=== PATIENT | male | born 1965 | race Caucasian/White ===

== ENCOUNTER 2023-09-15 13:40 | Observation (INO) | payer BC, OTHER ==
[2023-09-15] MEDS ORDERED: ASPIRIN 325 MG TABLET PO ONE (14:19)
[2023-09-15] MEDS ORDERED: ASPIRIN 325 MG TABLET ONE (14:49)
[2023-09-15 15:46] LABS: BASO % 0.7 % (0-2.0); EOS % 2.1 % (0-4.5); HEMOGLOBIN 15.6 GM/dL (11.7-16.9); LYMPH % 24.1 % (8-40); MCH 31.3 pg (25.7-33.7); MCHC 34.7 g/dl (32.0-35.9); MEAN CELL VOLUME 90.3 fl (80-96); MEAN PLT VOLUME 9.4 fl (7.5-11.1); MONO % 7.3 % (3.8-10.2); NEUT % 65.8 % (42.8-82.8); PLATELET COUNT 221 10^3/uL (134-434); RBC 4.99 M/mm3 (4.00-5.60); RDW 13.6 % (11.9-15.9); WHITE BLOOD COUNT 9.3 K/mm3 (4.0-10.0)
[2023-09-15 15:56] LABS: INR 1.04 (0.83-1.09); PROTHROMBIN TIME (PATIENT) 12.1 SEC (9.7-13.0)
[2023-09-15 15:59] LABS: ACTIVATED PTT 34.1 SECONDS (25.2-36.5)
[2023-09-15 16:05] LABS: CHLORIDE 102 mmol/L (98-107); SODIUM 134 mmol/L (136-145)
[2023-09-15 16:07] LABS: ALBUMIN 3.6 g/dl (3.4-5.0); BLOOD UREA NITROGEN 11.8 mg/dL (7-18); CALCIUM 8.5 mg/dL (8.5-10.1); CO2 27 mmol/L (21-32); GLUCOSE,RANDOM 184 mg/dL (74-106)
[2023-09-15 16:09] LABS: CREATININE 0.8 mg/dL (0.55-1.3); SGOT/AST 44 U/L (15-37); SGPT/ALT 28 U/L (13-61)
[2023-09-15 16:12] LABS: BILIRUBIN,TOTAL 0.8 mg/dL (0.2-1); TOT PROT 7.1 g/dl (6.4-8.2)
[2023-09-15 16:13] LABS: ALK PHOS 65 U/L (45-117)
[2023-09-15 16:18] LABS: ANION GAP 5 mmol/L (4-13); POTASSIUM 6.4 mmol/L (3.5-5.1)
[2023-09-15] MEDS ORDERED: NITROGLYCERIN SUBLINGUAL 1/150 0.4 MG TAB SL ONE (17:16)
[2023-09-15] MEDS ORDERED: NITROGLYCERIN SUBLINGUAL 1/150 0.4 MG TAB SL PRN (17:20)
[2023-09-15] MEDS: LACTATED RINGERS SOLUTION 1,000 ML IV SCH (17:30)
[2023-09-15 17:41] LABS: ALBUMIN 3.7 g/dl (3.4-5.0); BLOOD UREA NITROGEN 11.5 mg/dL (7-18); CALCIUM 8.9 mg/dL (8.5-10.1)
[2023-09-15 17:45] LABS: CREATININE 0.8 mg/dL (0.55-1.3)
[2023-09-15 17:47] LABS: BILIRUBIN,TOTAL 0.6 mg/dL (0.2-1); TOT PROT 6.8 g/dl (6.4-8.2)
[2023-09-15] MEDS ORDERED: METOPROLOL TARTRATE 25 MG TABLET (FP) ONE (21:05)
[2023-09-15] MEDS ORDERED: ATORVASTATIN CA 80 MG TABLET (FP) ONE (21:06)
[2023-09-15] MEDS: ATORVASTATIN CA 80 MG TABLET (FP) PO SCH ×2 (21:06→21:28)
[2023-09-15] MEDS: METOPROLOL TARTRATE 25 MG TABLET (FP) PO SCH ×2 (21:07→21:27)
[2023-09-16 01:33] VITALS: RESP 20; BMI 28.8
[2023-09-16 07:42] LABS: BASO % 0.3 % (0-2.0); EOS % 2.5 % (0-4.5); HEMATOCRIT 45.6 % (35.4-49); MCH 31.6 pg (25.7-33.7); MCHC 35.1 g/dl (32.0-35.9); MEAN CELL VOLUME 90.1 fl (80-96); MEAN PLT VOLUME 9.1 fl (7.5-11.1); MONO % 6.5 % (3.8-10.2); NEUT % 66.7 % (42.8-82.8); PLATELET COUNT 199 10^3/uL (134-434); RBC 5.06 M/mm3 (4.00-5.60); RDW 13.5 % (11.9-15.9); WHITE BLOOD COUNT 8.2 K/mm3 (4.0-10.0)
[2023-09-16 08:01] LABS: POTASSIUM 4.4 mmol/L (3.5-5.1)
[2023-09-16 08:10] LABS: CALCIUM 8.4 mg/dL (8.5-10.1)
[2023-09-16 08:11] LABS: ALBUMIN 3.7 g/dl (3.4-5.0); BLOOD UREA NITROGEN 10.3 mg/dL (7-18); MAGNESIUM 2.2 mg/dL (1.8-2.4)
[2023-09-16 08:12] LABS: INR 1.1 (0.83-1.09); PROTHROMBIN TIME (PATIENT) 12.7 SEC (9.7-13.0)
[2023-09-16 08:13] LABS: CREATININE 0.7 mg/dL (0.55-1.3)
[2023-09-16 08:14] LABS: PHOSPHOROUS 3.1 mg/dL (2.5-4.9)
[2023-09-16 08:15] LABS: ACTIVATED PTT 32.6 SECONDS (25.2-36.5); BILIRUBIN,TOTAL 1.1 mg/dL (0.2-1); TOT PROT 6.8 g/dl (6.4-8.2)
[2023-09-16 08:18] LABS: N-TERMINAL BNP 35.7 pg/ml (5-125)
[2023-09-16] MEDS: ASPIRIN 81 MG CHEWABLE TABLETS PO SCH (09:40)
[2023-09-16] MEDS: METOPROLOL TARTRATE 25 MG TABLET (FP) PO SCH ×2 (09:40→09:46)
[2023-09-16] MEDS: ENOXAPARIN NA (PORCINE) 40 MG/0.4 ML DISP.SYRIN SQ SCH (09:40)
[2023-09-16] MEDS: LACTATED RINGERS SOLUTION 1,000 ML IV SCH (17:25)
[2023-09-16] MEDS: metoPROLOL SUCCINATE 25 MG TAB.SR.24H (FP) PO SCH (17:25)
[2023-09-16] MEDS: ATORVASTATIN CA 80 MG TABLET (FP) PO SCH (21:14)
[2023-09-17 07:32] VITALS: BP 127/75; PULSE 62; TEMP 97.6
[2023-09-17 08:01] LABS: BASO % 0.4 % (0-2.0); EOS % 2.2 % (0-4.5); HEMATOCRIT 46.9 % (35.4-49); HEMOGLOBIN 15.9 GM/dL (11.7-16.9); LYMPH % 18.9 % (8-40); MCH 31.1 pg (25.7-33.7); MCHC 33.8 g/dl (32.0-35.9); MEAN CELL VOLUME 92.1 fl (80-96); MEAN PLT VOLUME 9.1 fl (7.5-11.1); MONO % 6.9 % (3.8-10.2); NEUT % 71.6 % (42.8-82.8); PLATELET COUNT 205 10^3/uL (134-434); RBC 5.09 M/mm3 (4.00-5.60); RDW 13.4 % (11.9-15.9); WHITE BLOOD COUNT 8.2 K/mm3 (4.0-10.0)
[2023-09-17 08:14] LABS: POTASSIUM 4.4 mmol/L (3.5-5.1)
[2023-09-17 08:21] LABS: ALBUMIN 3.6 g/dl (3.4-5.0); BLOOD UREA NITROGEN 11.6 mg/dL (7-18); CALCIUM 8.9 mg/dL (8.5-10.1); MAGNESIUM 2.4 mg/dL (1.8-2.4)
[2023-09-17 08:23] LABS: CREATININE 0.6 mg/dL (0.55-1.3); PHOSPHOROUS 2.9 mg/dL (2.5-4.9)
[2023-09-17 08:26] LABS: BILIRUBIN,TOTAL 1.3 mg/dL (0.2-1); TOT PROT 6.9 g/dl (6.4-8.2)
[2023-09-17] MEDS: ASPIRIN 81 MG CHEWABLE TABLETS PO SCH (09:56)
[2023-09-17] MEDS: metoPROLOL SUCCINATE 25 MG TAB.SR.24H (FP) PO SCH (09:56)
[2023-09-17] MEDS: ENOXAPARIN NA (PORCINE) 40 MG/0.4 ML DISP.SYRIN SQ SCH (09:56)
== END 2023-09-17 15:54 | disposition home or self-care (01) ==
LOC: JER 13:40 → JERBED 16:47 → J4W 22:53
PROVIDERS: ADMIT Internal Medicine; ATTEND Internal Medicine
PROC: 3E023GC Introduction of Other Therapeutic Substance into Muscle, Percutaneous Approach (ICD-10-PCS; principal; 2023-09-15)
PROC: 3E0337Z Introduction of Electrolytic and Water Balance Substance into Peripheral Vein, Percutaneous Approach (ICD-10-PCS; 2023-09-15)
DX: I20.0 Unstable angina (principal); I10 Essential (primary) hypertension; I1A.0 Resistant hypertension; E11.9 Type 2 diabetes mellitus without complications; R94.31 Abnormal electrocardiogram [ECG] [EKG]
CPT/HCPCS: 0241U-QW; 36415; 71046-TC-FY; 80053; 80061; 82962; 83036; 83735; 83880; 84100; 84443; 84484; 85025; 85610; 85730; 93005; 93010; 93306-TC; 99285-25; G0378

== ENCOUNTER 2025-08-01 15:41 | Observation (INO) | payer BC, OTHER ==
[2025-08-01] MEDS ORDERED: ASPIRIN 81 MG CHEWABLE TABLETS ONE (16:50)
[2025-08-01] MEDS ORDERED: ACETAMINOPHEN INJECTION 100 ML ONE (16:51)
[2025-08-01] MEDS: ACETAMINOPHEN 1000 MG/100 ML BAG IVPB ONE (16:55)
[2025-08-01] MEDS: ASPIRIN 81 MG CHEWABLE TABLETS PO ONE (16:55)
[2025-08-01 17:06] LABS: ABSOLUTE IMMATURE GRANULOCYTES 0.01 x10^3/uL (0.0-0.031); BASOPHILS # 0.04 x10^3/uL (0.01-0.08); EOSINOPHIL % 1.6 % (0.8-7.0); EOSINOPHILS # 0.13 x10^3/uL (0.04-0.54); MCHC 34.6 g/dl (32.3-36.5); MEAN CELL VOLUME 92.3 fl (79.0-92.2); MEAN PLT VOLUME 11.0 fl (9.4-12.4); MONOCYTE # 0.49 x10^3/uL (0.30-0.82); MONOCYTE % 5.9 % (5.3-12.2); RDW 12.4 % (12.2-16.1)
[2025-08-01 17:58] LABS: GLUCOSE,RANDOM 108.0 mg/dL (74-106); TOT PROT 7.1 g/dl (6.4-8.2)
[2025-08-01 17:59] LABS: CO2 26.0 mmol/L (21-32)
[2025-08-01 18:01] LABS: ALK PHOS 64.0 U/L (40-150)
[2025-08-01 18:03] LABS: SGOT/AST 25.0 U/L (5-34); SGPT/ALT 18.0 U/L (0-55)
[2025-08-01 18:04] LABS: CREATININE 0.74 mg/dL (0.55-1.3)
[2025-08-01 18:22] LABS: HIV INTERPRETATION NEGATIVE (NEGATIVE)
[2025-08-01 18:23] LABS: HCV DIAGNOSTIC IN-HOUSE W/RFLX NON-REACTIVE (NONREACTIVE)
[2025-08-01] MEDS ORDERED: morphine CARPU-JECT 2 MG/1 ML DISP.SYRIN IVPUSH PRN (21:36)
[2025-08-01] MEDS ORDERED: NITROGLYCERIN SUBLINGUAL 1/150 0.4 MG TAB SL PRN (21:39)
[2025-08-01] MEDS ORDERED: ATORVASTATIN CA 40 MG TABLET (FP) ONE (22:05)
[2025-08-01] MEDS: ATORVASTATIN CA 40 MG TABLET (FP) PO SCH (22:12)
[2025-08-01 23:16] VITALS: BMI 24.5
[2025-08-02 06:25] VITALS: RESP 18
[2025-08-02 07:48] LABS: ABSOLUTE IMMATURE GRANULOCYTES 0.02 x10^3/uL (0.0-0.031); BASOPHILS # 0.03 x10^3/uL (0.01-0.08); EOSINOPHIL % 3.1 % (0.8-7.0); EOSINOPHILS # 0.16 x10^3/uL (0.04-0.54); MCHC 33.9 g/dl (32.3-36.5); MEAN CELL VOLUME 93.5 fl (79.0-92.2); MEAN PLT VOLUME 10.8 fl (9.4-12.4); MONOCYTE # 0.35 x10^3/uL (0.30-0.82); MONOCYTE % 6.8 % (5.3-12.2); RDW 12.4 % (12.2-16.1)
[2025-08-02 08:07] LABS: GLUCOSE,RANDOM 101.0 mg/dL (74-106)
[2025-08-02 08:08] LABS: TOT PROT 6.7 g/dl (6.4-8.2)
[2025-08-02 08:09] LABS: CO2 26.0 mmol/L (21-32)
[2025-08-02 08:10] LABS: ALK PHOS 57.0 U/L (40-150)
[2025-08-02 08:13] LABS: CREATININE 0.6 mg/dL (0.55-1.3); SGOT/AST 20.0 U/L (5-34); SGPT/ALT 16.0 U/L (0-55)
[2025-08-02 08:15] LABS: N-TERMINAL BNP 86.7 pg/mL (0-299.9)
[2025-08-02 14:15] VITALS: BP 126/70; PULSE 69; TEMP 98.6
[2025-08-02] MEDS: ASPIRIN COATED 81 MG TABLET.EC PO SCH (14:19)
[2025-08-02] MEDS: ENOXAPARIN NA (PORCINE) 40 MG/0.4 ML DISP.SYRIN SQ SCH (14:19)
[2025-08-02 16:54] LABS: LDL CHOLESTEROL (ONLY SJRH) 75 mg/dL (5-100)
== END 2025-08-02 18:15 | disposition home or self-care (01) ==
LOC: JER 15:41 → JERBED 20:29 → J6W TELE 23:12
PROVIDERS: ADMIT Hospitalist; ATTEND Internal Medicine
PROC: 3E033NZ Introduction of Analgesics, Hypnotics, Sedatives into Peripheral Vein, Percutaneous Approach (ICD-10-PCS; principal; 2025-08-01)
PROC: 3E023GC Introduction of Other Therapeutic Substance into Muscle, Percutaneous Approach (ICD-10-PCS; 2025-08-01)
DX: R07.89 Other chest pain (principal); I10 Essential (primary) hypertension; E11.9 Type 2 diabetes mellitus without complications; E78.5 Hyperlipidemia, unspecified
CPT/HCPCS: 36415; 71045-TC-FY; 78452-TC; 80053; 80061; 82248; 83036; 83880; 84484; 85025; 86803; 87389; 93005; 93010; 93017; 93306-TC; 99285-25; A9502; G0378